=== PATIENT | male | born 1940 | race Two or more races ===

== ENCOUNTER 2020-02-20 08:45 | Outpatient (CLI) | payer OTHER | END 2020-02-20 08:46 | disposition home or self-care (01) | LOC: SONOGRAMA 08:45 | PROVIDERS: ATTEND Pathology Anatomic Pathology & Clinical Pathology | DX: E04.1 Nontoxic single thyroid nodule (principal) ==

== ENCOUNTER 2020-05-20 20:23 | Inpatient (IN) | payer OTHER ==
[~2020-05-20] VITALS: Ht 167.6 cm; Wt 62.6 kg
[2020-05-20] MEDS ORDERED: ATORVASTATIN CA40 MG PO (20:46)
[2020-05-20] MEDS ORDERED: LOSARTAN POTAS100 MG PO (20:46)
[2020-05-20] MEDS ORDERED: MIRTAZAPINE15 MG PO (20:47)
[2020-05-20] MEDS ORDERED: OPTIMAL D31250 MCG PO (20:47)
[2020-05-20] MEDS ORDERED: CLOPIDOGREL BIS75 MG PO (20:47)
[2020-05-20] MEDS ORDERED: RIVASTIGMINE1 EAC2 TD (20:48)
[2020-05-20] MEDS ORDERED: DONEPEZIL HCL10 MG PO (20:48)
[2020-05-20] MEDS ORDERED: PROTECT IRON T1 EACH PO (20:48)
[2020-05-20] MEDS ORDERED: MEMANTINE HCL10 MG PO (20:48)
[2020-05-20] MEDS ORDERED: TAMSULOSIN HCL0.4 MG PO (20:49)
[2020-05-20] MEDS ORDERED: [UNRECOGNIZED DRUG - CODE] SL (20:49)
[2020-05-20] MEDS ORDERED: RIVASTIGMINE1 EACH TD (20:49)
[2020-05-20] MEDS ORDERED: INVOKANA100 MG PO (20:50)
[2020-05-20] MEDS ORDERED: RIVASTIGMINE1 EAC1 TD (20:50)
== END 2020-05-27 10:18 | disposition home or self-care (01) | DRG 92 ==
LOC: ER 20:23 → SEC-K 05-21 09:10 → SURH 05-22 21:31 → MEDI 05-25 17:48
PROVIDERS: ADMIT Internal Medicine; ATTEND Internal Medicine
PROC: B345ZZZ Ultrasonography of Bilateral Common Carotid Arteries (ICD-10-PCS; principal; 2020-05-21)
PROC: B348ZZZ Ultrasonography of Bilateral Internal Carotid Arteries (ICD-10-PCS; 2020-05-21)
PROC: BW28ZZZ Computerized Tomography (CT Scan) of Head (ICD-10-PCS; 2020-05-21)
PROC: B030ZZZ Magnetic Resonance Imaging (MRI) of Brain (ICD-10-PCS; 2020-05-21)
PROC: 4A033R1 Measurement of Arterial Saturation, Peripheral, Percutaneous Approach (ICD-10-PCS; 2020-05-21)
DX: G92 Toxic encephalopathy (principal); I69.354 Hemiplegia and hemiparesis following cerebral infarction affecting left non-dominant side; N17.8 Other acute kidney failure; G30.9 Alzheimer's disease, unspecified; F02.80 Dementia in other diseases classified elsewhere, unspecified severity, without behavioral disturbance, psychotic disturbance, mood disturbance, and anxiety; I10 Essential (primary) hypertension; E11.9 Type 2 diabetes mellitus without complications; D47.3 Essential (hemorrhagic) thrombocythemia; E86.0 Dehydration
CPT/HCPCS: 70551